=== PATIENT | female | born 1965 | race Caucasian/White ===

== ENCOUNTER 2016-03-27 07:30 | Day surgery (SDC) | payer OTHER ==
[~2016-03-27 07:30] MED LIST: LIDOCAINE W/ SODIUM BICARB 0.5 ML SYR ONE; Lactated Ringers 1,000 ML PRIMARY IV ONE; MIDAZOLAM 5 MG/1 ML ONE; fentaNYL Inj 100 MCG/2 ML VIAL ONE
--- NOTE | 2016-03-27 08:58 | GEN.OPNOTE ---
Colonoscopy Procedure Note Surgery Date: 03/27/16 Preoperative Diagnosis: Diarrhea. Intermittent bright red blood per rectum. Postoperative Diagnosis: Same. Procedure: Complete colonoscopy with intubation of the terminal ileum and multiple random biopsies. Surgeon: Nakul Amaro MD Anesthesia Provider: Kobe Rubio CRNA Anesthesia Type: MAC Indications: See preoperative diagnosis. Findings: Prep : [poor] Cecum : [Normal as limited by the prep] Ascending : [Normal as limited by the prep] Transverse : [Normal as limited by the prep] Sigmoid : [Normal as limited by the prep] Rectum : [Normal as limited by the prep] Digital Rectal Exam : [No gross abnormalities] A lubricated flexible colonoscope was inserted and passed to the blind end of the cecum. The terminal ileum was intubated and appeared normal. Random biopsies were taken. The scope was withdrawn into the cecum. The prep was very poor. What I could see showed no evidence of polyps, tumors, neoplastic masses, infectious or inflammatory process. Multiple random biopsies were taken from the terminal ileum, right colon, transverse colon, sigmoid colon, and rectum. The scope was withdrawn completing the procedure. Patient tolerated the procedure well without complication. She was taken to outpatient surgery in stable condition. We will call the biopsy results when available. We'll need to consider stool studies pending the biopsy results. Recommend follow-up colonoscopy at age 52 as this one was inadequate.
[2016-03-27 09:39] VITALS: RESP 18
[2016-03-27 12:01] VITALS: TEMP 97.9
== END 2016-03-27 10:00 | disposition home or self-care (01) ==
LOC: SDSC 07:30
PROVIDERS: ATTEND Surgery
DX: K62.5 Hemorrhage of anus and rectum (principal); R19.7 Diarrhea, unspecified
CPT/HCPCS: 45380; J2704; J3010; J2250; J7120